=== PATIENT | female | born 1975 | race Caucasian/White ===

== ENCOUNTER 2018-05-02 10:59 | Inpatient (IN) | payer OTHER ==
[~2018-05-02] VITALS: Ht 162.6 cm; Wt 53.5 kg
[~2018-05-02 10:59] MED LIST: LEVO-T75 MCG PO; MULTI VITAMIN1 EACH PO
== END 2018-05-11 18:21 | disposition home or self-care (01) | DRG 581 ==
LOC: SURG-SUITE 05-10 07:00 → O/R 05-10 07:30 → SURG 05-10 07:30 → SURG-SUITE 05-10 09:47 → SURG 05-11 18:21
PROVIDERS: Plastic Surgery; Surgery
PROC: 0HHV0NZ Insertion of Tissue Expander into Bilateral Breast, Open Approach (ICD-10-PCS; 2018-05-10)
PROC: 07B60ZX Excision of Left Axillary Lymphatic, Open Approach, Diagnostic (ICD-10-PCS; principal; 2018-05-10 07:00)
PROC: 0HTV0ZZ Resection of Bilateral Breast, Open Approach (ICD-10-PCS; 2018-05-10 07:00)
DX: C50.512 Malignant neoplasm of lower-outer quadrant of left female breast (principal); Z90.13 Acquired absence of bilateral breasts and nipples

== ENCOUNTER 2018-08-02 07:00 | Day surgery (SDC) | payer OTHER ==
[~2018-08-02] VITALS: Ht 162.6 cm; Wt 52.2 kg
[~2018-08-02 07:00] MED LIST changes: +TAMOXIFEN CITRA20 MG PO
== END 2018-08-02 13:00 | disposition home or self-care (01) ==
LOC: SURG 07:00 → CIR.AMB 07:00 → EDSTATUS 07:00 → CIR.AMB 13:00 → O/R 14:10 → SURG 18:45
DX: C50.912 Malignant neoplasm of unspecified site of left female breast (principal); Z90.13 Acquired absence of bilateral breasts and nipples
CPT/HCPCS: 19330; 19342; 19366; 19316; L8600

== ENCOUNTER 2019-05-07 06:10 | Day surgery (SDC) | payer OTHER | END 2019-05-07 12:00 | disposition home or self-care (01) | LOC: CIR.AMB 06:10 | DX: D26.1 Other benign neoplasm of corpus uteri (principal) ==